=== PATIENT | female | born 1995 | race Caucasian/White ===

== ENCOUNTER 2016-07-12 15:12 | Emergency (ER) | payer MEDICAID ==
[~2016-07-12] VITALS: Ht 160 cm; Wt 54.0 kg
[2016-07-12 15:13] VITALS: BP 120/80
== END 2016-07-12 17:52 | disposition home or self-care (01) ==
LOC: ED 17:35
DX: J03.00 Acute streptococcal tonsillitis, unspecified (principal)
CPT/HCPCS: 36415; 86308; 99283

== ENCOUNTER 2017-03-11 19:05 | Inpatient (IN) | payer MEDICAID ==
[~2017-03-11] VITALS: Ht 160 cm; Wt 73.0 kg
[2017-03-11] MEDS ORDERED: OXYTOCIN 30U/ 0.9% NaCL 500ML 500 ML IV ONE ×2 (19:34→21:00)
[2017-03-11] MEDS: D5%-LACTATED RINGERS 1,000 ML IV SCH (19:34)
[2017-03-11 19:59] LABS: HEMATOCRIT 30.9 % (34.6-47.8); HEMOGLOBIN 9.9 g/dL (11.7-16.4)
[2017-03-11] MEDS ORDERED: ONDANSETRON 2MG/ML, 2ML IVPush PRN ×2 (20:00→21:00)
[2017-03-11] MEDS ORDERED: CALCIUM CARBONATE 500 MG TAB.CHEW PO PRN (20:00)
[2017-03-11] MEDS ORDERED: FENTANYL PF 100 MCG/2ML IV PRN (20:00)
[2017-03-11] MEDS ORDERED: TERBUTALINE 1 MG/ML, 1ML IVPush PRN ×2 (20:00→21:00)
[2017-03-11] MEDS ORDERED: FENTANYL PF 100 MCG/2ML IVPush PRN (20:00)
[2017-03-11] MEDS ORDERED: FENTANYL/BUPIV./NS/PF 250 ML EPIDCONT ONE ×2 (20:18→20:25)
[2017-03-11] MEDS ORDERED: FENTANYL PF 100 MCG/2ML ONE ×2 (20:18→20:25)
[2017-03-11] MEDS ORDERED: BUPIVACAINE 0.25% ONE ×2 (20:18→20:44)
[2017-03-11] MEDS ORDERED: LIDOCAINE/PF 1.5%-EPI 1:200K, 30ML ONE (20:25)
[2017-03-11] MEDS ORDERED: FENTANYL/BUPIV./NS/PF 250 ML EPIDCONT SCH (20:40)
[2017-03-11] MEDS: LACTATED RINGERS 1,000 ML IV SCH ×2 (20:45→21:29)
[2017-03-11] MEDS ORDERED: LACTATED RINGERS 1,000 ML IVBOLUS PRN (21:00)
[2017-03-11] MEDS ORDERED: OXYTOCIN 30U/ 0.9% NaCL 500ML 500 ML IV PRN (21:00)
[2017-03-11] MEDS ORDERED: ALUMINUM/MAG/SIMETHICONE 30 ML UDC PO PRN (21:00)
[2017-03-11] MEDS ORDERED: BUPIVACAINE/PF 0.25% ONE (21:03)
[2017-03-11 22:01] LABS: HIV 1&2 ANTIBODY SCREEN Nonreactive (Nonreactive); HIV-1 p24 ANTIGEN Nonreactive (Nonreactive)
[2017-03-11 22:06] LABS: DAU SCREEN DISCLAIMER
[2017-03-12] MEDS ORDERED: OXYTOCIN 30U/ 0.9% NaCL 500ML 500 ML ONE (00:27)
[2017-03-12] MEDS ORDERED: NEWBORN KIT ONE (00:27)
[2017-03-12] MEDS ORDERED: CALCIUM CARBONATE 500 MG TAB.CHEW ONE (01:24)
[2017-03-12] MEDS: LACTATED RINGERS 1,000 ML IV SCH ×5 (02:33→10:17)
[2017-03-12] MEDS ORDERED: ACETAMINOPHEN 325 MG TABLET ONE (02:43)
[2017-03-12] MEDS ORDERED: ACETAMINOPHEN 325 MG TABLET PO PRN ×2 (03:00→09:00)
[2017-03-12] MEDS: D5%-LACTATED RINGERS 1,000 ML IV SCH (03:34)
[2017-03-12] MEDS ORDERED: FENTANYL PF 100 MCG/2ML ONE ×4 (05:33→10:07)
[2017-03-12] MEDS ORDERED: CEFAZOLIN 1,000 MG ONE (08:31)
[2017-03-12] MEDS ORDERED: MIDAZOLAM 1 MG/ML, 2ML ONE ×2 (08:49→08:54)
[2017-03-12] MEDS ORDERED: NITROGLYCERIN 5 MG/ML, 10ML ONE (08:59)
[2017-03-12] MEDS ORDERED: IBUPROFEN 800 MG TABLET PO PRN (09:00)
[2017-03-12] MEDS ORDERED: METHYLERGONOVINE 0.2 MG/ML IM PRN (09:00)
[2017-03-12] MEDS ORDERED: ONDANSETRON 2MG/ML, 2ML IV PRN (09:00)
[2017-03-12] MEDS ORDERED: MISOPROSTOL 200 MCG TABLET PR PRN (09:00)
[2017-03-12] MEDS ORDERED: DOCUSATE 100 MG CAPSULE PO PRN (09:00)
[2017-03-12] MEDS: PRENATAL VIT/IRON/FA 1 EACH TABLET PO SCH (09:00)
[2017-03-12] MEDS ORDERED: LIDOCAINE-MPF 2% ,5ML ONE (09:01)
[2017-03-12] MEDS ORDERED: MEPERIDINE/PF 25MG/0.5ML IVPush PRN (09:30)
[2017-03-12] MEDS ORDERED: PROMETHAZINE 25 MG/ML, 1ML IV PRN (09:30)
[2017-03-12] MEDS ORDERED: LABETALOL 5MG/ML, 20ML IV PRN (09:30)
[2017-03-12] MEDS ORDERED: FENTANYL PF 100 MCG/2ML IV PRN (09:30)
[2017-03-12] MEDS ORDERED: ONDANSETRON 2MG/ML, 2ML IVPush PRN (09:30)
[2017-03-12] MEDS ORDERED: MIDAZOLAM 1 MG/ML, 2ML IV PRN (09:30)
[2017-03-12] MEDS ORDERED: morphine SULFATE 10 MG/ML, 1ML IV PRN (09:30)
[2017-03-12] MEDS ORDERED: OXYcodone 5 MG/5 ML ORAL.SOL UDC PO PRN (09:30)
[2017-03-12] MEDS ORDERED: IBUPROFEN 600 MG TABLET ONE (10:02)
[2017-03-12] MEDS: IBUPROFEN 600 MG TABLET PO PRN ×2 (10:10→19:46)
[2017-03-12] MEDS: OXYTOCIN 30U/ 0.9% NaCL 500ML 500 ML IV SCH ×2 (10:18→18:34)
[2017-03-12 12:15] VITALS: BP 110/78
[2017-03-12 13:16] LABS: DAU SCREEN DISCLAIMER
[2017-03-12 16:00] VITALS: BP 109/71
[2017-03-12 19:40] VITALS: BP 110/70
[2017-03-12 21:27] LABS: HEMATOCRIT 27.1 % (34.6-47.8); HEMOGLOBIN 8.5 g/dL (11.7-16.4); WHITE BLOOD COUNT 24.5 x10^3/uL (3.4-10)
[2017-03-12 21:41] LABS: DIFF TOTAL CELLS COUNTED 100 CELL DIFF
[2017-03-12 21:43] LABS: ANISOCYTOSIS 1+; POLYCHROMASIA 1+; VERIFY COUNTS? YES
[2017-03-13 00:11] VITALS: BP 114/69
[2017-03-13] MEDS: OXYTOCIN 30U/ 0.9% NaCL 500ML 500 ML IV SCH ×2 (04:20→14:34)
[2017-03-13 04:30] VITALS: BP 112/71
[2017-03-13] MEDS: IBUPROFEN 600 MG TABLET PO PRN ×2 (04:36→10:05)
[2017-03-13] MEDS ORDERED: OXYTOCIN 10 UNITS/ML, 1ML ONE (08:00)
[2017-03-13 08:30] VITALS: BP 110/70
[2017-03-13] MEDS ORDERED: METHADONE ORAL.SOLN 1 MG/ML PO SCH (09:00)
[2017-03-13] MEDS: PRENATAL VIT/IRON/FA 1 EACH TABLET PO SCH (09:00)
[2017-03-13] MEDS ORDERED: METHADONE INTENSOL 10 MG/ML ORAL CONC PO SCH (10:01)
[2017-03-13 14:00] VITALS: BP 112/68
[2017-03-13] MEDS ORDERED: IBUP-1222 PO (17:40)
[2017-03-13] MEDS ORDERED: ACET325T14 PO (17:40)
== END 2017-03-13 18:02 | disposition home or self-care (01) | DRG 767 ==
LOC: LDOP 19:05 → LDIP 19:31 → 2NW 03-12 10:30
PROVIDERS: ADMIT Obstetrics & Gynecology; ATTEND Obstetrics & Gynecology
PROC: 10D07Z6 Extraction of Products of Conception, Vacuum, Via Natural or Artificial Opening (ICD-10-PCS; principal; 2017-03-12)
PROC: 10D17Z9 Manual Extraction of Products of Conception, Retained, Via Natural or Artificial Opening (ICD-10-PCS; 2017-03-12)
PROC: 0W8NXZZ Division of Female Perineum, External Approach (ICD-10-PCS; 2017-03-12)
PROC: 3E0R3BZ Introduction of Anesthetic Agent into Spinal Canal, Percutaneous Approach (ICD-10-PCS; 2017-03-12)
PROC: 00HU33Z Insertion of Infusion Device into Spinal Canal, Percutaneous Approach (ICD-10-PCS; 2017-03-12)
DX: O48.0 Post-term pregnancy (principal); O99.324 Drug use complicating childbirth; O63.1 Prolonged second stage (of labor); F19.10 Other psychoactive substance abuse, uncomplicated; O77.0 Labor and delivery complicated by meconium in amniotic fluid; Z3A.40 40 weeks gestation of pregnancy; Z37.0 Single live birth
CPT/HCPCS: 36415; 80307; 85025; 86592; 86703; 86762; 86803; 86850; 86900; 87340; 87899; 88305; 88307; J0690; J2250; J3010; J3490; G0435; G0479; J2590; J7120